=== PATIENT | female | born 1945 | race Caucasian/White ===

== ENCOUNTER 2017-03-01 18:56 | Emergency (ER) | payer OTHER ==
[~2017-03-01] VITALS: Ht 144.8 cm; Wt 85.0 kg
[~2017-03-01 18:56] MED LIST: ACET325T26 PO; ALEN70TA3 PO; CARB1TAB2 PO; CHOL10002 PO; DIGO125T PO; ENOX100S5 SQ; ENOX30SY4 SQ; ERGO500047 PO; FLUT1DIS3 INH; FURO40TA6 PO; HYDR-3240 PO; HYDR-3307 PO; HYDR25SU4 HOMEMEDPR; IRON PO; LEVA15HF2 INH; LEVO500T8 PO; LISI2.5T PO; LISI5TAB7 PO; LOVENOX SC; MAGNESIUM PO; MECL-76 PO; METO2.5T PO; MONT10TA6 PO; POTA10TA11 PO; POTASSIUM PO; PREG150C PO; PREG50CA PO; PREG75CA PO; SUCR1TAB26 PO; TORS10TA4 PO; TORS20TA PO; TORS20TA2 PO; TRAM50TA2 PO; VERA240T86 PO; VITA1CAP PO; VITA400C40 PO; WARF2.5T PO; WARF5TAB PO; WARF7.5T PO-COUM
[2017-03-01 18:59] VITALS: BP 130/77
[2017-03-01 19:41] LABS: BLOOD UREA NITROGEN 19 mg/dL (7-18)
[2017-03-01] MEDS ORDERED: [UNRECOGNIZED DRUG - CODE] TP (19:57)
[2017-03-01] MEDS ORDERED: ALEN10TA6 PO (19:57)
== END 2017-03-01 20:54 | disposition home or self-care (01) ==
LOC: ED 20:48
DX: S40.022A Contusion of left upper arm, initial encounter (principal); D68.9 Coagulation defect, unspecified; I48.91 Unspecified atrial fibrillation; Z79.01 Long term (current) use of anticoagulants; J44.9 Chronic obstructive pulmonary disease, unspecified; K21.9 Gastro-esophageal reflux disease without esophagitis; I11.0 Hypertensive heart disease with heart failure; I50.9 Heart failure, unspecified; Z90.710 Acquired absence of both cervix and uterus; Z90.49 Acquired absence of other specified parts of digestive tract; X58.XXXA Exposure to other specified factors, initial encounter; Y93.89 Activity, other specified; Y92.89 Other specified places as the place of occurrence of the external cause; Y99.9 Unspecified external cause status
CPT/HCPCS: 36415; 80048; 82040; 85025; 85610; 99285

== ENCOUNTER 2017-03-16 09:41 | Inpatient (IN) | payer OTHER ==
[~2017-03-16] VITALS: Ht 144.8 cm; Wt 83.1 kg
[~2017-03-16 09:41] MED LIST changes: +ALEN10TA6 PO; +[UNRECOGNIZED DRUG - CODE] TP
[2017-03-16] MEDS ORDERED: SODIUM CHLORIDE FLUSH 10ML SYR IVF ONE (10:30)
[2017-03-16 11:02] LABS: ASPARTATE AMINO TRANSFERASE 58 U/L (15-37); BLOOD UREA NITROGEN 33 mg/dL (7-18)
[2017-03-16 11:24] LABS: ANISOCYTOSIS 1+
[2017-03-16 11:25] LABS: HYPOCHROMIA 1+; TARGET CELLS 1+
[2017-03-16] MEDS ORDERED: TORS20TA2 PO (11:27)
[2017-03-16] MEDS ORDERED: VERA360C2 PO (11:27)
[2017-03-16] MEDS ORDERED: PREG50CA PO ×2 (11:27)
[2017-03-16] MEDS ORDERED: HYDR-3307 PO (11:27)
[2017-03-16] MEDS ORDERED: SUCR1TAB26 PO (11:27)
[2017-03-16] MEDS ORDERED: PHYTONADIONE 10 MG/ML, 1ML SQ ONE (13:00)
[2017-03-16] MEDS ORDERED: PHYTONADIONE 10 MG/ML, 1ML ONE (13:14)
[2017-03-16] MEDS ORDERED: ONDANSETRON 2MG/ML, 2ML IVPush PRN (14:30)
[2017-03-16] MEDS ORDERED: BISACODYL 10 MG SUPP PR PRN (14:30)
[2017-03-16] MEDS ORDERED: TEMPLATE NON-FORMULARY MED. (Fluticasone/Salmeterol** (Advair 250-50 Diskus**) 1 PUFF) INH SCH (17:00)
[2017-03-16] MEDS: morphine SULFATE 10 MG/ML, 1ML IVPush PRN (19:37)
[2017-03-16 20:01] VITALS: BP 116/65
[2017-03-16] MEDS: POTASSIUM CHLORIDE 20 MEQ in LACTATED RINGERS 1,000 ML IV SCH (20:02)
[2017-03-16] MEDS ORDERED: OMNIPAQUE 350 MG/ML, 100ML BOTTLE ONE (20:08)
[2017-03-16] MEDS: CARBIDOPA/LEVODOPA 25 MG/100 MG TABLET PO SCH (20:56)
[2017-03-16] MEDS: PREGABALIN 25 MG CAPSULE PO SCH (20:56)
[2017-03-16] MEDS: MONTELUKAST 10 MG TABLET PO SCH (20:56)
[2017-03-17 03:32] VITALS: BP 119/73
[2017-03-17 05:36] LABS: ASPARTATE AMINO TRANSFERASE 61 U/L (15-37); BLOOD UREA NITROGEN 17 mg/dL (7-18)
[2017-03-17] MEDS: PREGABALIN 25 MG CAPSULE PO SCH ×2 (06:14→20:46)
[2017-03-17] MEDS: morphine SULFATE 10 MG/ML, 1ML IVPush PRN ×4 (06:18→20:46)
[2017-03-17 07:21] LABS: DIFF TOTAL CELLS COUNTED 100 CELL DIFF
[2017-03-17 07:25] LABS: VERIFY COUNTS? YES
[2017-03-17 07:27] LABS: ANISOCYTOSIS 1+
[2017-03-17 07:28] LABS: TARGET CELLS 1+
[2017-03-17 08:01] VITALS: BP 110/68
[2017-03-17] MEDS: VERAPAMIL ER 180MG TABLET.ER PO SCH (10:18)
[2017-03-17] MEDS: CARBIDOPA/LEVODOPA 25 MG/100 MG TABLET PO SCH ×2 (10:18→20:46)
[2017-03-17] MEDS: PHYTONADIONE 10 MG/ML, 1ML SQ SCH (10:19)
[2017-03-17] MEDS: FLUTICASONE/VILANTEROL 200-25MCG/INH INH SCH (11:59)
[2017-03-17] MEDS: POTASSIUM CHLORIDE 20 MEQ in LACTATED RINGERS 1,000 ML IV SCH (13:16)
[2017-03-17 15:00] VITALS: BP 116/70
[2017-03-17 19:05] VITALS: BP 119/72
[2017-03-17] MEDS: MONTELUKAST 10 MG TABLET PO SCH (20:46)
[2017-03-18] MEDS: morphine SULFATE 10 MG/ML, 1ML IVPush PRN ×5 (00:26→21:26)
[2017-03-18 03:14] VITALS: BP 120/82
[2017-03-18] MEDS: PREGABALIN 25 MG CAPSULE PO SCH ×2 (05:54→21:19)
[2017-03-18 06:17] LABS: ASPARTATE AMINO TRANSFERASE 51 U/L (15-37); BLOOD UREA NITROGEN 17 mg/dL (7-18)
[2017-03-18 07:48] VITALS: BP 120/74
[2017-03-18] MEDS ORDERED: POLYETHYLENE GLYCOL 17 GM PACKET NG ONE (09:00)
[2017-03-18] MEDS: VERAPAMIL ER 180MG TABLET.ER PO SCH (09:25)
[2017-03-18] MEDS: CARBIDOPA/LEVODOPA 25 MG/100 MG TABLET PO SCH ×2 (09:25→21:19)
[2017-03-18] MEDS: FLUTICASONE/VILANTEROL 200-25MCG/INH INH SCH (09:26)
[2017-03-18] MEDS: DOCUSATE 100 MG CAPSULE PO SCH ×2 (10:22→21:19)
[2017-03-18] MEDS: PHYTONADIONE 10 MG/ML, 1ML SQ SCH (10:24)
[2017-03-18] MEDS: ENOXAPARIN 80 MG/0.8 ML SQ SCH ×2 (10:30→22:30)
[2017-03-18 12:43] VITALS: BP 120/71
[2017-03-18 19:29] VITALS: BP 125/70
[2017-03-18] MEDS: MONTELUKAST 10 MG TABLET PO SCH (21:19)
[2017-03-19 02:30] VITALS: BP 122/75
[2017-03-19 03:55] LABS: BLOOD UREA NITROGEN 12 mg/dL (7-18)
[2017-03-19 03:58] LABS: ASPARTATE AMINO TRANSFERASE 58 U/L (15-37)
[2017-03-19 03:59] LABS: IS PT STATUS REG ER OR PRE ER? NO
[2017-03-19 04:07] LABS: DIFF TOTAL CELLS COUNTED 100 CELL DIFF
[2017-03-19 04:24] LABS: ANISOCYTOSIS 1+; HYPOCHROMIA 1+; POLYCHROMASIA 1+; TARGET CELLS 1+; VERIFY COUNTS? YES
[2017-03-19] MEDS: morphine SULFATE 10 MG/ML, 1ML IVPush PRN ×2 (06:32→21:49)
[2017-03-19 08:30] VITALS: BP 116/68
[2017-03-19] MEDS ORDERED: FENTANYL PF 100 MCG/2ML ONE (08:43)
[2017-03-19] MEDS ORDERED: SUCCINYLCHOLINE 20 MG/ML, 10ML ONE (09:09)
[2017-03-19] MEDS ORDERED: ONDANSETRON 2MG/ML, 2ML ONE (09:09)
[2017-03-19] MEDS ORDERED: PROPOFOL 10 MG/ML, 20ML ONE (09:09)
[2017-03-19] MEDS ORDERED: PROMETHAZINE 25 MG/ML, 1ML IV PRN (10:00)
[2017-03-19] MEDS ORDERED: ONDANSETRON 2MG/ML, 2ML IVPush PRN (10:00)
[2017-03-19] MEDS ORDERED: MIDAZOLAM 1 MG/ML, 2ML IV PRN (10:00)
[2017-03-19] MEDS ORDERED: FENTANYL PF 100 MCG/2ML IV PRN (10:00)
[2017-03-19] MEDS ORDERED: hydrALAzine 20 MG/ML, 1ML IV PRN (10:00)
[2017-03-19] MEDS ORDERED: LABETALOL 5MG/ML, 20ML IV PRN (10:00)
[2017-03-19] MEDS ORDERED: HYDROmorphone 1 MG/ML, 1ML IV PRN (10:00)
[2017-03-19] MEDS ORDERED: ALBUTEROL/IPRATROPIUM 2.5MG/0.5MG, 3 ML NPPB PRN (10:00)
[2017-03-19] MEDS ORDERED: OMNIPAQUE 350 MG/ML, 50 ML BOTTLE ONE (10:40)
[2017-03-19] MEDS ORDERED: INDOMETHACIN 50 MG SUPP.RECT ONE (10:46)
[2017-03-19] MEDS ORDERED: INDOMETHACIN 50 MG SUPP.RECT PR ONE (11:00)
[2017-03-19] MEDS: ENOXAPARIN 80 MG/0.8 ML SQ SCH ×2 (11:20→21:44)
[2017-03-19] MEDS: PHYTONADIONE 10 MG/ML, 1ML SQ SCH (11:20)
[2017-03-19] MEDS: PREGABALIN 25 MG CAPSULE PO SCH ×2 (12:47→21:44)
[2017-03-19] MEDS: VERAPAMIL ER 180MG TABLET.ER PO SCH (12:48)
[2017-03-19] MEDS: CARBIDOPA/LEVODOPA 25 MG/100 MG TABLET PO SCH ×2 (12:48→21:44)
[2017-03-19] MEDS: DOCUSATE 100 MG CAPSULE PO SCH ×2 (12:49→21:44)
[2017-03-19] MEDS: FLUTICASONE/VILANTEROL 200-25MCG/INH INH SCH (12:49)
[2017-03-19 14:35] VITALS: BP 119/56
[2017-03-19 19:43] VITALS: BP 101/58
[2017-03-19] MEDS: MONTELUKAST 10 MG TABLET PO SCH (21:56)
[2017-03-20 02:17] VITALS: BP 99/60
[2017-03-20 05:52] LABS: ASPARTATE AMINO TRANSFERASE 46 U/L (15-37); BLOOD UREA NITROGEN 24 mg/dL (7-18)
[2017-03-20 06:36] LABS: DIFF TOTAL CELLS COUNTED 100 CELL DIFF
[2017-03-20 06:37] LABS: VERIFY COUNTS? YES
[2017-03-20 06:38] LABS: ANISOCYTOSIS 1+
[2017-03-20 06:39] LABS: HYPOCHROMIA 1+; POLYCHROMASIA 1+
[2017-03-20 06:40] LABS: TARGET CELLS 1+
[2017-03-20 06:54] VITALS: BP 101/50
[2017-03-20] MEDS ORDERED: POTASSIUM CHLORIDE 20 MEQ TAB.ER.PRT PO ONE (07:30)
[2017-03-20] MEDS: CARBIDOPA/LEVODOPA 25 MG/100 MG TABLET PO SCH (08:23)
[2017-03-20] MEDS: VERAPAMIL ER 180MG TABLET.ER PO SCH (08:23)
[2017-03-20] MEDS: PREGABALIN 25 MG CAPSULE PO SCH (08:23)
[2017-03-20] MEDS: FLUTICASONE/VILANTEROL 200-25MCG/INH INH SCH (08:23)
[2017-03-20] MEDS: DOCUSATE 100 MG CAPSULE PO SCH (08:23)
[2017-03-20] MEDS: morphine SULFATE 10 MG/ML, 1ML IVPush PRN ×2 (08:33→14:38)
[2017-03-20] MEDS ORDERED: CIPR250T27 PO (10:11)
[2017-03-20] MEDS ORDERED: METR750T PO (10:11)
[2017-03-20] MEDS ORDERED: ENOX80SY5 SQ (10:50)
[2017-03-20 13:09] VITALS: BP 96/60
[2017-03-20] MEDS ORDERED: ENOXAPARIN 80 MG/0.8 ML SQ SCH (21:00)
== END 2017-03-20 15:45 | disposition home health service (06) | DRG 438 ==
LOC: ED 11:17 → SUATTDRO 13:19 → EDIP 14:18 → 3NE 17:13
PROC: 0FBG3ZX Excision of Pancreas, Percutaneous Approach, Diagnostic (ICD-10-PCS; 2017-03-19)
PROC: 0F798DZ Dilation of Common Bile Duct with Intraluminal Device, Via Natural or Artificial Opening Endoscopic (ICD-10-PCS; principal; 2017-03-19 09:00)
PROC: 0DJ08ZZ Inspection of Upper Intestinal Tract, Via Natural or Artificial Opening Endoscopic (ICD-10-PCS; 2017-03-19 09:00)
DX: K85.90 Acute pancreatitis without necrosis or infection, unspecified (principal); K83.1 Obstruction of bile duct; I50.33 Acute on chronic diastolic (congestive) heart failure; E87.1 Hypo-osmolality and hyponatremia; D68.59 Other primary thrombophilia; I11.0 Hypertensive heart disease with heart failure; I48.2 Chronic atrial fibrillation; K21.9 Gastro-esophageal reflux disease without esophagitis; G25.81 Restless legs syndrome; Z66 Do not resuscitate; Z86.010 Personal history of colon polyps; M19.90 Unspecified osteoarthritis, unspecified site; K57.90 Diverticulosis of intestine, part unspecified, without perforation or abscess without bleeding; Z95.3 Presence of xenogenic heart valve; Z85.038 Personal history of other malignant neoplasm of large intestine; Z79.01 Long term (current) use of anticoagulants; I27.2 Other secondary pulmonary hypertension; Z90.49 Acquired absence of other specified parts of digestive tract; Z90.710 Acquired absence of both cervix and uterus; Z90.721 Acquired absence of ovaries, unilateral; Z88.1 Allergy status to other antibiotic agents; Z88.0 Allergy status to penicillin; Z95.2 Presence of prosthetic heart valve; G47.33 Obstructive sleep apnea (adult) (pediatric); G20 Parkinson's disease; T45.515A Adverse effect of anticoagulants, initial encounter; J44.9 Chronic obstructive pulmonary disease, unspecified; M81.0 Age-related osteoporosis without current pathological fracture
CPT/HCPCS: 36415; 74170; 74181; 74328; 76700; 80048; 80053; 80076; 80307; 81001; 82140; 82247; 82248; 82378; 83690; 83735; 84484; 85025; 85610; 85730; 86301; 87086; 88173; 88307; 93005; 96374; 96375; J1650; J2405; J2704; J3010; J3430; J3480; Q9967; C1769; C1894; C2625; J0330; J2270; J7120

== ENCOUNTER 2017-04-11 09:41 | Day surgery (SDC) | payer OTHER ==
[~2017-04-11] VITALS: Ht 144.8 cm; Wt 80.9 kg
[~2017-04-11 09:41] MED LIST changes: +BUDE10.22 INH; +CIPR250T27 PO; +ENOX80SY5 SQ; -LEVA15HF2 INH; +LEVA15HF4 INH; +METR750T PO; +POTA10TA PO; -SUCR1TAB26 PO; +SUCR1TAB33 PO; +VERA360C2 PO; -VITA400C40 PO; +VITA400C43 PO
[2017-04-11 10:12] VITALS: BP 130/87
[2017-04-11] MEDS ORDERED: LACTATED RINGERS 1,000 ML IV SCH (10:15)
[2017-04-11] MEDS ORDERED: OXYC-293 PO (10:32)
[2017-04-11] MEDS ORDERED: FENTANYL PF 100 MCG/2ML ONE ×2 (10:51→11:02)
[2017-04-11] MEDS ORDERED: MIDAZOLAM 1 MG/ML, 2ML ONE ×2 (10:51→11:02)
[2017-04-11] MEDS ORDERED: hydrALAzine 20 MG/ML, 1ML IV PRN (12:00)
[2017-04-11] MEDS ORDERED: ACETAMINOPHEN 325 MG TABLET PO PRN (12:00)
[2017-04-11] MEDS ORDERED: HYDROmorphone 1 MG/ML, 1ML IV PRN (12:00)
[2017-04-11] MEDS ORDERED: ONDANSETRON 2MG/ML, 2ML IVPush PRN (12:00)
[2017-04-11] MEDS ORDERED: PROMETHAZINE 25 MG/ML, 1ML IV PRN (12:00)
[2017-04-11] MEDS ORDERED: LABETALOL 5MG/ML, 20ML IV PRN (12:00)
[2017-04-11] MEDS ORDERED: OXYcodone 5 MG/5 ML ORAL.SOL UDC PO PRN (12:00)
[2017-04-11] MEDS ORDERED: MEPERIDINE/PF 25MG/0.5ML IVPush PRN (12:00)
[2017-04-11] MEDS ORDERED: FENTANYL PF 100 MCG/2ML IV PRN (12:00)
[2017-04-11] MEDS ORDERED: HYDROmorphone 1 MG/ML, 1ML ONE (12:40)
[2017-04-11] MEDS ORDERED: SUCCINYLCHOLINE 20 MG/ML, 10ML ONE (15:47)
[2017-04-11] MEDS ORDERED: PROPOFOL 10 MG/ML, 20ML ONE (15:47)
[2017-04-11] MEDS ORDERED: ONDANSETRON 2MG/ML, 2ML ONE (15:47)
[2017-04-11] MEDS ORDERED: DEXAMETHASONE 4 MG/ML, 1ML ONE (15:47)
[2017-04-11] MEDS ORDERED: KETAMINE 10 MG/ML, 20ML ONE (15:47)
== END 2017-04-11 15:00 ==
LOC: OUT 09:41
PROVIDERS: ATTEND Internal Medicine Geriatric Medicine
DX: C25.0 Malignant neoplasm of head of pancreas (principal); K83.1 Obstruction of bile duct; I10 Essential (primary) hypertension; J45.909 Unspecified asthma, uncomplicated; E11.9 Type 2 diabetes mellitus without complications; G20 Parkinson's disease; Z88.0 Allergy status to penicillin; Z87.39 Personal history of other diseases of the musculoskeletal system and connective tissue
CPT/HCPCS: 36415; 43242; 43276; 74328; 82962; 85610; 85730; 88172; 88173; 88177; 88307; C1769; C1894; C2625; J0330; J1100; J1170; J2250; J2405; J2704; J3010; J7120; Q9967

== ENCOUNTER → 2017-05-15 | Outpatient (CLI) | payer OTHER ==
[~2017-05-15] MED LIST changes: +LEVA15HF2 INH; -LEVA15HF4 INH; +OMNIPAQUE 350 MG/ML, 100ML BOTTLE ONE; +OXYC-96 PO; +SUCR1TAB26 PO; -SUCR1TAB33 PO
== END | disposition home or self-care (01) ==
LOC: CFH 14:21
PROVIDERS: ATTEND Surgery
DX: C25.9 Malignant neoplasm of pancreas, unspecified (principal); N28.1 Cyst of kidney, acquired; K80.80 Other cholelithiasis without obstruction
CPT/HCPCS: 74170; Q9967

== ENCOUNTER 2017-06-14 19:56 | Inpatient (IN) | payer OTHER ==
[~2017-06-14] VITALS: Ht 144.8 cm; Wt 64.3 kg
[~2017-06-14 19:56] MED LIST changes: -LEVA15HF2 INH; +LEVA15HF4 INH; -OMNIPAQUE 350 MG/ML, 100ML BOTTLE ONE; +OXYC-293 PO; -OXYC-96 PO; -SUCR1TAB26 PO; +SUCR1TAB33 PO
[2017-06-14] MEDS ORDERED: SODIUM CHLORIDE FLUSH 10ML SYR IVF ONE (20:30)
[2017-06-14] MEDS ORDERED: ACETAMINOPHEN 325 MG TABLET PO ONE (20:30)
[2017-06-14] MEDS ORDERED: SODIUM CHLORIDE 0.9% 1,000ML IVBOLUS ONE (20:30)
[2017-06-14] MEDS ORDERED: ONDANSETRON 2MG/ML, 2ML ONE (20:41)
[2017-06-14] MEDS ORDERED: MORPHINE SULFATE 4 MG/ML, 1ML ONE ×2 (20:41→21:43)
[2017-06-14] MEDS ORDERED: ACETAMINOPHEN 325 MG TABLET ONE (20:41)
[2017-06-14] MEDS ORDERED: ONDANSETRON 2MG/ML, 2ML IVPush ONE (21:00)
[2017-06-14] MEDS ORDERED: MORPHINE SULFATE 4 MG/ML, 1ML IVPush PRN (21:00)
[2017-06-14 21:08] LABS: HEMATOCRIT 33.6 % (34.6-47.8); WHITE BLOOD COUNT 7.8 x10^3/uL (3.4-10)
[2017-06-14 21:12] LABS: BLOOD UREA NITROGEN 20 mg/dL (7-18)
[2017-06-14 21:13] LABS: PATH.CAST-FLAG NOT PRESENT; SPERM-FLAG NOT PRESENT; SRC-FLAG NOT PRESENT; XTAL-FLAG NOT PRESENT; YLC-FLAG NOT PRESENT
[2017-06-14 21:17] LABS: ASPARTATE AMINO TRANSFERASE 103 U/L (15-37)
[2017-06-14] MEDS ORDERED: CEFTRIAXONE PMX 1GM/50ML 50 ML ONE (22:12)
[2017-06-14] MEDS ORDERED: NYSTATIN TOPICAL POWDER 15GM TP ONE (22:30)
[2017-06-14] MEDS ORDERED: VANCOMYCIN PER PHARMACY MC PRN ×2 (22:30→23:30)
[2017-06-14] MEDS ORDERED: CEFTRIAXONE PMX 1GM/50ML 50 ML IV ONE (22:30)
[2017-06-14] MEDS ORDERED: VANCOMYCIN 1,400 MG in SODIUM CHLORIDE 0.9% 250 ML IV ONE (23:00)
[2017-06-14] MEDS ORDERED: ONDANSETRON 2MG/ML, 2ML IVPush PRN (23:30)
[2017-06-14] MEDS ORDERED: ACETAMINOPHEN 500 MG TABLET PO PRN (23:30)
[2017-06-14] MEDS ORDERED: Enoxaparin 1 mg/kg protocol SQ SCH (23:30)
[2017-06-14] MEDS ORDERED: WARFARIN MODERAT DOSE PROTOCOL XX PRN (23:30)
[2017-06-14] MEDS ORDERED: POTASSIUM CHLORIDE 20 MEQ TAB.ER.PRT PO ONE (23:30)
[2017-06-14 23:41] VITALS: BP 99/54
[2017-06-14] MEDS ORDERED: PHARMACOKINETIC MONITORING MC PRN (23:45)
[2017-06-15] MEDS: OXYcodone IR 5MG TABLET PO PRN ×4 (00:36→15:49)
[2017-06-15] MEDS: LACTATED RINGERS 1,000 ML IV SCH ×2 (00:55→17:55)
[2017-06-15 03:33] VITALS: BP 95/58
[2017-06-15 05:31] LABS: HEMATOCRIT 26.1 % (34.6-47.8); HEMOGLOBIN 8.9 g/dL (11.7-16.4); WHITE BLOOD COUNT 5.5 x10^3/uL (3.4-10)
[2017-06-15 05:54] LABS: ASPARTATE AMINO TRANSFERASE 75 U/L (15-37); BLOOD UREA NITROGEN 17 mg/dL (7-18)
[2017-06-15] MEDS ORDERED: SODIUM PHOSPHATE 20 MMOL in SODIUM CHLORIDE 0.9% 500 ML IV ONE (07:00)
[2017-06-15 07:35] VITALS: BP 104/65
[2017-06-15] MEDS ORDERED: SODIUM CHLORIDE 0.9%, 500ML IVBOLUS ONE (08:00)
[2017-06-15] MEDS: PREGABALIN 25 MG CAPSULE PO SCH ×2 (08:51→20:06)
[2017-06-15] MEDS: ALENDRONATE 10 MG TABLET PO SCH (08:51)
[2017-06-15] MEDS: CHOLECALCIFEROL 1,000 UNIT TABLET PO SCH (08:53)
[2017-06-15] MEDS: TORSEMIDE 20 MG TABLET PO SCH (08:53)
[2017-06-15] MEDS: LACTULOSE 10 GM/15 ML UDC PO SCH ×2 (08:53→20:07)
[2017-06-15] MEDS: SUCRALFATE 1 GM TABLET PO SCH ×2 (08:54→20:06)
[2017-06-15] MEDS: CARBIDOPA/LEVODOPA 25 MG/100 MG TABLET PO SCH ×2 (08:55→20:06)
[2017-06-15] MEDS: NYSTATIN TOPICAL POWDER 15GM TP SCH ×3 (08:56→20:07)
[2017-06-15] MEDS ORDERED: VERAPAMIL ER 180MG TABLET.ER PO SCH (09:00)
[2017-06-15] MEDS: FLUTICASONE/VILANTEROL 100-25MCG/INH INH SCH (09:00)
[2017-06-15] MEDS ORDERED: WARFARIN 5 MG TABLET PO-COUM SCH (09:00)
[2017-06-15 12:26] LABS: OCCBLD OBC PASS
[2017-06-15 13:53] VITALS: BP 100/57
[2017-06-15] MEDS ORDERED: WARFARIN 7.5 MG TABLET PO-COUM ONE (18:00)
[2017-06-15 19:18] VITALS: BP_SYST 108; BP_SYST 87; BP_DIAS 48; BP_DIAS 67
[2017-06-15] MEDS: CEFTRIAXONE PMX 1GM/50ML 50 ML IV SCH (20:59)
[2017-06-16 00:50] VITALS: BP 92/51
[2017-06-16 04:49] LABS: HEMATOCRIT 26.8 % (34.6-47.8); HEMOGLOBIN 8.9 g/dL (11.7-16.4); WHITE BLOOD COUNT 5.5 x10^3/uL (3.4-10)
[2017-06-16] MEDS: LACTATED RINGERS 1,000 ML IV SCH ×2 (04:49→22:16)
[2017-06-16] MEDS: OXYcodone IR 5MG TABLET PO PRN ×5 (04:49→22:01)
[2017-06-16 05:01] LABS: BLOOD UREA NITROGEN 9 mg/dL (7-18)
[2017-06-16 05:06] LABS: ASPARTATE AMINO TRANSFERASE 74 U/L (15-37)
[2017-06-16 06:42] VITALS: BP 97/61
[2017-06-16] MEDS ORDERED: POTASSIUM CHLORIDE 20 MEQ TAB.ER.PRT PO ONE (07:30)
[2017-06-16] MEDS ORDERED: SODIUM CHLORIDE 0.9%, 500ML IVBOLUS ONE (07:30)
[2017-06-16] MEDS ORDERED: POTASSIUM PHOSPHATE 44 MEQ in SODIUM CHLORIDE 0.9% 500 ML IV ONE (08:30)
[2017-06-16] MEDS: CHOLECALCIFEROL 1,000 UNIT TABLET PO SCH (08:31)
[2017-06-16] MEDS: CARBIDOPA/LEVODOPA 25 MG/100 MG TABLET PO SCH ×2 (08:32→22:01)
[2017-06-16] MEDS: PREGABALIN 25 MG CAPSULE PO SCH ×2 (08:32→22:02)
[2017-06-16] MEDS: LACTULOSE 10 GM/15 ML UDC PO SCH ×2 (08:32→22:01)
[2017-06-16] MEDS: TORSEMIDE 20 MG TABLET PO SCH (08:33)
[2017-06-16] MEDS: SUCRALFATE 1 GM TABLET PO SCH ×2 (08:34→21:00)
[2017-06-16] MEDS: ALENDRONATE 10 MG TABLET PO SCH (08:34)
[2017-06-16] MEDS: FLUTICASONE/VILANTEROL 100-25MCG/INH INH SCH (08:36)
[2017-06-16] MEDS: VERAPAMIL ER 180MG TABLET.ER PO SCH (08:37)
[2017-06-16] MEDS: PANTOPRAZOLE 20MG TABLET PO SCH ×2 (08:53→22:01)
[2017-06-16] MEDS: PANTOPRAZOLE 40 MG IV IVPush SCH (09:00)
[2017-06-16] MEDS: NYSTATIN TOPICAL POWDER 15GM TP SCH ×2 (09:04→21:00)
[2017-06-16] MEDS: VANCOMYCIN 1,400 MG in SODIUM CHLORIDE 0.9% 250 ML IV SCH (10:00)
[2017-06-16 12:40] VITALS: BP 124/77
[2017-06-16] MEDS ORDERED: GOLYTELY 4,000ML ORAL.SOL PO ONE (18:00)
[2017-06-16] MEDS ORDERED: WARFARIN 10 MG TABLET PO-COUM SCH (18:00)
[2017-06-16 19:02] VITALS: BP 109/69
[2017-06-16] MEDS: CEFTRIAXONE PMX 1GM/50ML 50 ML IV SCH (22:01)
[2017-06-17 00:28] VITALS: BP 110/66
[2017-06-17] MEDS: HYDROmorphone 2 MG/ML, 1ML IVPush PRN ×3 (03:12→21:25)
[2017-06-17 04:40] LABS: BLOOD UREA NITROGEN 8 mg/dL (7-18)
[2017-06-17 04:44] LABS: HEMATOCRIT 28.2 % (34.6-47.8); HEMOGLOBIN 9.5 g/dL (11.7-16.4); WHITE BLOOD COUNT 4.1 x10^3/uL (3.4-10)
[2017-06-17 04:44] LABS: ASPARTATE AMINO TRANSFERASE 65 U/L (15-37)
[2017-06-17 07:01] VITALS: BP 99/60
[2017-06-17] MEDS: PANTOPRAZOLE 40 MG IV IVPush SCH (08:00)
[2017-06-17] MEDS: LACTULOSE 10 GM/15 ML UDC PO SCH ×2 (08:00→21:25)
[2017-06-17] MEDS: VERAPAMIL ER 180MG TABLET.ER PO SCH (09:00)
[2017-06-17] MEDS: ALENDRONATE 10 MG TABLET PO SCH (09:00)
[2017-06-17] MEDS ORDERED: FENTANYL PF 100 MCG/2ML ONE (09:29)
[2017-06-17] MEDS ORDERED: MIDAZOLAM 1 MG/ML, 5ML ONE (09:29)
[2017-06-17] MEDS: VANCOMYCIN 1,400 MG in SODIUM CHLORIDE 0.9% 250 ML IV SCH (11:15)
[2017-06-17] MEDS: PREGABALIN 25 MG CAPSULE PO SCH ×2 (11:18→21:25)
[2017-06-17] MEDS: PANTOPRAZOLE 20MG TABLET PO SCH ×2 (11:19→21:26)
[2017-06-17] MEDS: CARBIDOPA/LEVODOPA 25 MG/100 MG TABLET PO SCH ×2 (11:19→21:28)
[2017-06-17] MEDS: SUCRALFATE 1 GM TABLET PO SCH ×2 (11:19→21:28)
[2017-06-17] MEDS: CHOLECALCIFEROL 1,000 UNIT TABLET PO SCH (11:20)
[2017-06-17] MEDS: FLUTICASONE/VILANTEROL 100-25MCG/INH INH SCH (11:20)
[2017-06-17] MEDS: NYSTATIN TOPICAL POWDER 15GM TP SCH ×2 (11:24→21:29)
[2017-06-17] MEDS: TORSEMIDE 20 MG TABLET PO SCH (11:24)
[2017-06-17] MEDS: LACTATED RINGERS 1,000 ML IV SCH (13:00)
[2017-06-17 13:18] VITALS: BP 111/59
[2017-06-17] MEDS ORDERED: POTASSIUM PHOS 4.4 MEQ/ML IV SCH (16:30)
[2017-06-17] MEDS ORDERED: POTASSIUM PHOSPHATE 44 MEQ in SODIUM CHLORIDE 0.9% 500 ML IV ONE (17:00)
[2017-06-17] MEDS: NEUTRA PHOS K 250 MG TABLET PO SCH ×2 (17:54→21:26)
[2017-06-17] MEDS ORDERED: WARFARIN 7.5 MG TABLET PO-COUM ONE (18:30)
[2017-06-17 18:46] VITALS: BP 94/56
[2017-06-17] MEDS: OXYcodone IR 5MG TABLET PO PRN (19:16)
[2017-06-17] MEDS ORDERED: VANCOMYCIN PER PHARMACY MC PRN (19:30)
[2017-06-17] MEDS ORDERED: ACETAMINOPHEN 500 MG TABLET PO PRN (19:30)
[2017-06-17] MEDS ORDERED: ONDANSETRON 2MG/ML, 2ML IVPush PRN (19:30)
[2017-06-17] MEDS: CEFTRIAXONE PMX 1GM/50ML 50 ML IV SCH (21:29)
[2017-06-18 04:23] VITALS: BP 114/73
[2017-06-18] MEDS: OXYcodone IR 5MG TABLET PO PRN ×4 (04:33→22:48)
[2017-06-18 06:59] VITALS: BP 108/61
[2017-06-18] MEDS: ALENDRONATE 10 MG TABLET PO SCH (09:00)
[2017-06-18] MEDS: VERAPAMIL ER 180MG TABLET.ER PO SCH (09:00)
[2017-06-18] MEDS: VANCOMYCIN 1,400 MG in SODIUM CHLORIDE 0.9% 250 ML IV SCH (10:07)
[2017-06-18] MEDS: FLUTICASONE/VILANTEROL 100-25MCG/INH INH SCH (10:08)
[2017-06-18] MEDS: PANTOPRAZOLE 40 MG IV IVPush SCH (10:09)
[2017-06-18] MEDS: TORSEMIDE 20 MG TABLET PO SCH (10:09)
[2017-06-18] MEDS: SUCRALFATE 1 GM TABLET PO SCH ×2 (10:10→21:00)
[2017-06-18] MEDS: LACTULOSE 10 GM/15 ML UDC PO SCH ×2 (10:11→21:28)
[2017-06-18] MEDS: CHOLECALCIFEROL 1,000 UNIT TABLET PO SCH (10:11)
[2017-06-18] MEDS: PANTOPRAZOLE 20MG TABLET PO SCH ×2 (10:11→21:29)
[2017-06-18] MEDS: NYSTATIN TOPICAL POWDER 15GM TP SCH ×2 (10:12→21:28)
[2017-06-18] MEDS: CARBIDOPA/LEVODOPA 25 MG/100 MG TABLET PO SCH ×2 (10:12→21:28)
[2017-06-18] MEDS: PREGABALIN 25 MG CAPSULE PO SCH ×2 (10:14→21:28)
[2017-06-18] MEDS: NEUTRA PHOS K 250 MG TABLET PO SCH ×3 (10:15→21:29)
[2017-06-18 13:23] VITALS: BP 91/52
[2017-06-18] MEDS ORDERED: WARFARIN 10 MG TABLET PO-COUM SCH (18:00)
[2017-06-18] MEDS: LACTATED RINGERS 1,000 ML IV SCH ×2 (18:14→21:39)
[2017-06-18 19:17] VITALS: BP 104/61
[2017-06-18] MEDS: CEFTRIAXONE PMX 1GM/50ML 50 ML IV SCH (21:28)
[2017-06-19] MEDS: HYDROmorphone 2 MG/ML, 1ML IVPush PRN (01:59)
[2017-06-19 02:48] VITALS: BP 110/69
[2017-06-19 04:43] LABS: HEMATOCRIT 26.4 % (34.6-47.8); HEMOGLOBIN 9.1 g/dL (11.7-16.4); WHITE BLOOD COUNT 3.2 x10^3/uL (3.4-10)
[2017-06-19 04:53] LABS: ASPARTATE AMINO TRANSFERASE 21 U/L (15-37); BLOOD UREA NITROGEN 5 mg/dL (7-18)
[2017-06-19 06:25] VITALS: BP 111/69
[2017-06-19] MEDS: OXYcodone IR 5MG TABLET PO PRN ×3 (06:32→20:18)
[2017-06-19] MEDS: FLUTICASONE/VILANTEROL 100-25MCG/INH INH SCH (08:35)
[2017-06-19] MEDS: TORSEMIDE 20 MG TABLET PO SCH (08:40)
[2017-06-19] MEDS: LACTULOSE 10 GM/15 ML UDC PO SCH ×2 (08:41→20:18)
[2017-06-19] MEDS: CARBIDOPA/LEVODOPA 25 MG/100 MG TABLET PO SCH ×2 (08:41→20:16)
[2017-06-19] MEDS: ALENDRONATE 10 MG TABLET PO SCH (08:41)
[2017-06-19] MEDS: SUCRALFATE 1 GM TABLET PO SCH ×2 (08:41→20:17)
[2017-06-19] MEDS: NYSTATIN TOPICAL POWDER 15GM TP SCH ×2 (08:42→20:18)
[2017-06-19] MEDS: PANTOPRAZOLE 20MG TABLET PO SCH ×2 (08:42→20:17)
[2017-06-19] MEDS: CHOLECALCIFEROL 1,000 UNIT TABLET PO SCH (08:42)
[2017-06-19] MEDS: NEUTRA PHOS K 250 MG TABLET PO SCH ×3 (08:43→20:17)
[2017-06-19] MEDS: PREGABALIN 25 MG CAPSULE PO SCH ×2 (08:43→20:18)
[2017-06-19] MEDS: VANCOMYCIN 1,500 MG in SODIUM CHLORIDE 0.9% 250 ML IV SCH (10:29)
[2017-06-19] MEDS: LACTATED RINGERS 1,000 ML IV SCH (11:00)
[2017-06-19] MEDS: PANTOPRAZOLE 40 MG IV IVPush SCH (13:04)
[2017-06-19 13:27] VITALS: BP 101/67
[2017-06-19] MEDS ORDERED: MAGNESIUM SULFATE PMX 2GM/50ML 50 ML IV ONE (14:00)
[2017-06-19 14:53] VITALS: BP 94/58
[2017-06-19] MEDS: VERAPAMIL ER 180MG TABLET.ER PO SCH (14:53)
[2017-06-19] MEDS: POTASSIUM CHLORIDE 20 MEQ TAB.ER.PRT PO SCH (17:04)
[2017-06-19] MEDS ORDERED: WARFARIN 10 MG TABLET PO-COUM ONE (18:00)
[2017-06-19 19:41] VITALS: BP 113/70
[2017-06-19] MEDS: MAGNESIUM OXIDE 400 MG TABLET PO SCH (20:18)
[2017-06-19] MEDS: CEFTRIAXONE PMX 1GM/50ML 50 ML IV SCH (22:16)
[2017-06-20 00:51] VITALS: BP 109/64
[2017-06-20] MEDS: LACTATED RINGERS 1,000 ML IV SCH (02:44)
[2017-06-20 04:41] LABS: HEMATOCRIT 26.6 % (34.6-47.8); HEMOGLOBIN 9.1 g/dL (11.7-16.4); WHITE BLOOD COUNT 2.9 x10^3/uL (3.4-10)
[2017-06-20 04:51] LABS: BLOOD UREA NITROGEN 6 mg/dL (7-18)
[2017-06-20 04:55] LABS: ASPARTATE AMINO TRANSFERASE 24 U/L (15-37)
[2017-06-20] MEDS: OXYcodone IR 5MG TABLET PO PRN ×3 (07:03→21:16)
[2017-06-20 07:44] VITALS: BP 114/73
[2017-06-20] MEDS: POTASSIUM CHLORIDE 20 MEQ TAB.ER.PRT PO SCH ×2 (08:48→17:00)
[2017-06-20] MEDS: VERAPAMIL ER 180MG TABLET.ER PO SCH (08:51)
[2017-06-20] MEDS: LACTULOSE 10 GM/15 ML UDC PO SCH ×2 (08:52→21:17)
[2017-06-20] MEDS: MAGNESIUM OXIDE 400 MG TABLET PO SCH ×2 (08:53→21:17)
[2017-06-20] MEDS: PREGABALIN 25 MG CAPSULE PO SCH ×2 (08:53→21:17)
[2017-06-20] MEDS: NEUTRA PHOS K 250 MG TABLET PO SCH ×3 (08:54→21:20)
[2017-06-20] MEDS: PANTOPRAZOLE 20MG TABLET PO SCH ×2 (08:55→21:20)
[2017-06-20] MEDS: CHOLECALCIFEROL 1,000 UNIT TABLET PO SCH (08:56)
[2017-06-20] MEDS: SUCRALFATE 1 GM TABLET PO SCH ×2 (08:58→21:00)
[2017-06-20] MEDS: ALENDRONATE 10 MG TABLET PO SCH (08:59)
[2017-06-20] MEDS: PANTOPRAZOLE 40 MG IV IVPush SCH (09:00)
[2017-06-20] MEDS: TORSEMIDE 20 MG TABLET PO SCH (09:01)
[2017-06-20] MEDS: FLUTICASONE/VILANTEROL 100-25MCG/INH INH SCH (09:02)
[2017-06-20] MEDS: NYSTATIN TOPICAL POWDER 15GM TP SCH ×2 (09:04→21:18)
[2017-06-20] MEDS: CARBIDOPA/LEVODOPA 25 MG/100 MG TABLET PO SCH ×2 (09:04→21:19)
[2017-06-20] MEDS: VANCOMYCIN 1,500 MG in SODIUM CHLORIDE 0.9% 250 ML IV SCH (10:48)
[2017-06-20] MEDS ORDERED: WARFARIN 10 MG TABLET PO-COUM ONE (18:00)
[2017-06-20 18:36] VITALS: BP 102/62
[2017-06-20] MEDS: CEFTRIAXONE PMX 1GM/50ML 50 ML IV SCH (21:19)
[2017-06-21 02:59] VITALS: BP 137/75
[2017-06-21] MEDS: OXYcodone IR 5MG TABLET PO PRN ×2 (04:09→13:33)
[2017-06-21] MEDS: TORSEMIDE 20 MG TABLET PO SCH ×2 (07:30→07:50)
[2017-06-21 07:42] VITALS: BP 98/60
[2017-06-21] MEDS: VERAPAMIL ER 180MG TABLET.ER PO SCH (07:47)
[2017-06-21] MEDS: FLUTICASONE/VILANTEROL 100-25MCG/INH INH SCH (07:50)
[2017-06-21] MEDS: NYSTATIN TOPICAL POWDER 15GM TP SCH (07:51)
[2017-06-21] MEDS: ALENDRONATE 10 MG TABLET PO SCH (08:15)
[2017-06-21] MEDS: LACTULOSE 10 GM/15 ML UDC PO SCH (08:16)
[2017-06-21] MEDS: PREGABALIN 25 MG CAPSULE PO SCH (08:18)
[2017-06-21] MEDS: MAGNESIUM OXIDE 400 MG TABLET PO SCH (08:19)
[2017-06-21] MEDS: PANTOPRAZOLE 20MG TABLET PO SCH (08:20)
[2017-06-21] MEDS: NEUTRA PHOS K 250 MG TABLET PO SCH (08:20)
[2017-06-21] MEDS: CARBIDOPA/LEVODOPA 25 MG/100 MG TABLET PO SCH (08:21)
[2017-06-21] MEDS: CHOLECALCIFEROL 1,000 UNIT TABLET PO SCH (08:22)
[2017-06-21] MEDS: SUCRALFATE 1 GM TABLET PO SCH (08:25)
[2017-06-21] MEDS: PANTOPRAZOLE 40 MG IV IVPush SCH (09:00)
[2017-06-21] MEDS ORDERED: NYST60PO TP (10:20)
[2017-06-21] MEDS: VANCOMYCIN 1,500 MG in SODIUM CHLORIDE 0.9% 250 ML IV SCH (13:33)
[2017-06-21] MEDS ORDERED: WARFARIN 10 MG TABLET PO-COUM ONE (18:00)
== END 2017-06-21 16:55 | disposition home health service (06) | DRG 602 ==
LOC: ED 21:42 → EDIP 22:45 → 3NW 23:22
PROVIDERS: ADMIT Hospitalist; ATTEND Hospitalist
PROC: 0DJ08ZZ Inspection of Upper Intestinal Tract, Via Natural or Artificial Opening Endoscopic (ICD-10-PCS; principal; 2017-06-17 10:00)
PROC: 0DJD8ZZ Inspection of Lower Intestinal Tract, Via Natural or Artificial Opening Endoscopic (ICD-10-PCS; 2017-06-17 10:00)
DX: L03.311 Cellulitis of abdominal wall (principal); K85.90 Acute pancreatitis without necrosis or infection, unspecified; D61.818 Other pancytopenia; E44.0 Moderate protein-calorie malnutrition; I13.0 Hypertensive heart and chronic kidney disease with heart failure and stage 1 through stage 4 chronic kidney disease, or unspecified chronic kidney disease; C78.89 Secondary malignant neoplasm of other digestive organs; I50.32 Chronic diastolic (congestive) heart failure; K86.1 Other chronic pancreatitis; D68.69 Other thrombophilia; K92.2 Gastrointestinal hemorrhage, unspecified; B35.6 Tinea cruris; I27.2 Other secondary pulmonary hypertension; E83.39 Other disorders of phosphorus metabolism; I48.2 Chronic atrial fibrillation; J44.9 Chronic obstructive pulmonary disease, unspecified; B37.2 Candidiasis of skin and nail; G25.81 Restless legs syndrome; E87.6 Hypokalemia; G47.30 Sleep apnea, unspecified; G62.9 Polyneuropathy, unspecified; N18.9 Chronic kidney disease, unspecified; K21.9 Gastro-esophageal reflux disease without esophagitis; M19.90 Unspecified osteoarthritis, unspecified site; K44.9 Diaphragmatic hernia without obstruction or gangrene; Z79.01 Long term (current) use of anticoagulants; Z85.038 Personal history of other malignant neoplasm of large intestine; Z85.07 Personal history of malignant neoplasm of pancreas; Z87.440 Personal history of urinary (tract) infections; Z92.21 Personal history of antineoplastic chemotherapy; Z95.3 Presence of xenogenic heart valve; Z68.30 Body mass index [BMI] 30.0-30.9, adult; Z90.49 Acquired absence of other specified parts of digestive tract; Z90.710 Acquired absence of both cervix and uterus; Z90.722 Acquired absence of ovaries, bilateral; Z88.0 Allergy status to penicillin; Z88.1 Allergy status to other antibiotic agents
CPT/HCPCS: 36415; 71010; 80053; 80202; 81001; 82272; 83605; 83735; 84100; 84145; 85025; 85610; 87040; 87086; 93005; 96361; 96365; 96367; 96375; J0696; J1170; J2250; J2405; J3010; J3370; C9113; J3475; J7030; J7040; J7050; J7120

== ENCOUNTER 2017-06-29 01:37 | Inpatient (IN) | payer OTHER ==
[~2017-06-29] VITALS: Ht 152.4 cm; Wt 94.9 kg
[~2017-06-29 01:37] MED LIST changes: +NYST60PO TP
[2017-06-29] MEDS ORDERED: SODIUM CHLORIDE 0.9% 1,000ML IVBOLUS ONE (02:30)
[2017-06-29] MEDS ORDERED: ACETAMINOPHEN 325 MG TABLET PO ONE (02:30)
[2017-06-29] MEDS ORDERED: ONDANSETRON 2MG/ML, 2ML IVPush ONE (02:30)
[2017-06-29] MEDS ORDERED: SODIUM CHLORIDE FLUSH 10ML SYR IVF ONE (02:30)
[2017-06-29] MEDS ORDERED: CHEMO IVPB (03:11)
[2017-06-29] MEDS ORDERED: ONDA4TAB13 SL (03:11)
[2017-06-29 03:20] LABS: ASPARTATE AMINO TRANSFERASE 29 U/L (15-37); BLOOD UREA NITROGEN 42 mg/dL (7-18)
[2017-06-29 03:26] LABS: HEMATOCRIT 27.5 % (34.6-47.8); HEMOGLOBIN 9.2 g/dL (11.7-16.4); WHITE BLOOD COUNT 7.5 x10^3/uL (3.4-10)
[2017-06-29] MEDS ORDERED: ACETAMINOPHEN 325 MG TABLET ONE (03:53)
[2017-06-29] MEDS ORDERED: DOCUSATE 100 MG CAPSULE PO PRN (05:00)
[2017-06-29] MEDS ORDERED: ACETAMINOPHEN 325 MG TABLET PO PRN (05:00)
[2017-06-29] MEDS ORDERED: ONDANSETRON 2MG/ML, 2ML IVPush PRN (05:00)
[2017-06-29] MEDS ORDERED: VANCOMYCIN PER PHARMACY MC PRN (05:00)
[2017-06-29] MEDS ORDERED: hydrALAzine 20 MG/ML, 1ML IVPush PRN (05:00)
[2017-06-29] MEDS ORDERED: PHARMACY MAY ADJ FOR RENAL FX MC PRN (05:00)
[2017-06-29] MEDS ORDERED: POLYETHYLENE GLYCOL 17 GM PACKET PO PRN (05:00)
[2017-06-29] MEDS: SODIUM CHLORIDE 0.9% 1,000 ML IV SCH ×2 (05:48→17:13)
[2017-06-29] MEDS: morphine SULFATE 10 MG/ML, 1ML IVPush PRN ×3 (05:48→16:26)
[2017-06-29] MEDS: LEVOFLOXACIN/PMX 500MG/100ML 100 ML IV SCH ×2 (05:48→08:07)
[2017-06-29] MEDS ORDERED: PHARMACOKINETIC MONITORING MC PRN (06:00)
[2017-06-29] MEDS ORDERED: PHARMACOKINETIC CONSULTATION MC ONE (06:00)
[2017-06-29 06:48] VITALS: BP 101/58
[2017-06-29] MEDS ORDERED: VANCOMYCIN 1,300 MG in SODIUM CHLORIDE 0.9% 250 ML IV ONE (07:30)
[2017-06-29] MEDS: CHOLECALCIFEROL 1,000 UNIT TABLET PO SCH (08:09)
[2017-06-29] MEDS: CARBIDOPA/LEVODOPA 25 MG/100 MG TABLET PO SCH ×2 (08:09→20:11)
[2017-06-29] MEDS: PREGABALIN 25 MG CAPSULE PO SCH ×2 (08:10→20:12)
[2017-06-29] MEDS: SUCRALFATE 1 GM TABLET PO SCH ×2 (08:12→20:12)
[2017-06-29] MEDS: VERAPAMIL ER 180MG TABLET.ER PO SCH (08:12)
[2017-06-29] MEDS: NYSTATIN TOPICAL POWDER 15GM TP SCH ×2 (08:15→21:04)
[2017-06-29] MEDS: TEMPLATE NON-FORMULARY MED. (Budesonide/Formoterol Fumarate (Symbicort 80-4.5 Mcg Inhaler) INH SCH ×2 (08:15→20:13)
[2017-06-29] MEDS ORDERED: WARFARIN 5 MG TABLET PO-COUM SCH (09:00)
[2017-06-29 12:50] VITALS: BP 90/52
[2017-06-29 18:33] VITALS: BP 100/55
[2017-06-29] MEDS: MONTELUKAST 10 MG TABLET PO SCH (20:11)
[2017-06-30 00:42] VITALS: BP 113/60
[2017-06-30 04:29] LABS: HEMATOCRIT 24.3 % (34.6-47.8); HEMOGLOBIN 8.1 g/dL (11.7-16.4); WHITE BLOOD COUNT 5.2 x10^3/uL (3.4-10)
[2017-06-30 04:39] LABS: ASPARTATE AMINO TRANSFERASE 18 U/L (15-37); BLOOD UREA NITROGEN 36 mg/dL (7-18)
[2017-06-30] MEDS: SODIUM CHLORIDE 0.9% 1,000 ML IV SCH ×2 (05:45→13:39)
[2017-06-30 06:43] VITALS: BP 132/74
[2017-06-30] MEDS: TEMPLATE NON-FORMULARY MED. (Budesonide/Formoterol Fumarate (Symbicort 80-4.5 Mcg Inhaler) INH SCH (09:00)
[2017-06-30] MEDS: SUCRALFATE 1 GM TABLET PO SCH ×2 (09:00→20:05)
[2017-06-30] MEDS ORDERED: WARFARIN 5 MG TABLET PO-COUM SCH (09:00)
[2017-06-30] MEDS ORDERED: VANCOMYCIN 1,300 MG in SODIUM CHLORIDE 0.9% 250 ML IV ONE (09:00)
[2017-06-30] MEDS: CHOLECALCIFEROL 1,000 UNIT TABLET PO SCH (09:01)
[2017-06-30] MEDS: NYSTATIN TOPICAL POWDER 15GM TP SCH ×2 (09:01→20:05)
[2017-06-30] MEDS: CARBIDOPA/LEVODOPA 25 MG/100 MG TABLET PO SCH ×2 (09:01→20:04)
[2017-06-30] MEDS: VERAPAMIL ER 180MG TABLET.ER PO SCH (09:02)
[2017-06-30] MEDS: PREGABALIN 25 MG CAPSULE PO SCH ×2 (09:02→20:05)
[2017-06-30 12:25] VITALS: BP 93/57
[2017-06-30 18:39] VITALS: BP 119/65
[2017-06-30] MEDS: MONTELUKAST 10 MG TABLET PO SCH (20:04)
[2017-06-30] MEDS: [UNRECOGNIZED DRUG - OTHER] INH SCH (20:04)
[2017-06-30] MEDS: FORMOTEROL FUMARATE INH SCH (20:04)
[2017-06-30] MEDS: BUDESONIDE INH SCH (20:04)
[2017-06-30] MEDS: OXYcodone/APAP 5/325MG TABLET PO PRN (20:04)
[2017-06-30 22:00] VITALS: BP 107/58
[2017-07-01 01:06] VITALS: BP 100/61
[2017-07-01] MEDS: OXYcodone/APAP 5/325MG TABLET PO PRN ×2 (04:20→14:24)
[2017-07-01 04:37] LABS: HEMATOCRIT 23.8 % (34.6-47.8); HEMOGLOBIN 7.9 g/dL (11.7-16.4); WHITE BLOOD COUNT 3.5 x10^3/uL (3.4-10)
[2017-07-01 04:41] LABS: BLOOD UREA NITROGEN 34 mg/dL (7-18)
[2017-07-01 05:46] LABS: DIFF TOTAL CELLS COUNTED 100 CELL DIFF
[2017-07-01 05:49] LABS: ANISOCYTOSIS 1+; VERIFY COUNTS? YES
[2017-07-01 05:50] LABS: OVALOCYTES 1+
[2017-07-01] MEDS: LEVOFLOXACIN/PMX 500MG/100ML 100 ML IV SCH (06:06)
[2017-07-01 07:21] VITALS: BP 93/51
[2017-07-01] MEDS: VERAPAMIL ER 180MG TABLET.ER PO SCH (08:50)
[2017-07-01] MEDS: FORMOTEROL FUMARATE INH SCH ×2 (08:51→19:42)
[2017-07-01] MEDS: NYSTATIN TOPICAL POWDER 15GM TP SCH ×2 (08:51→19:42)
[2017-07-01] MEDS: CHOLECALCIFEROL 1,000 UNIT TABLET PO SCH (08:51)
[2017-07-01] MEDS: CARBIDOPA/LEVODOPA 25 MG/100 MG TABLET PO SCH ×2 (08:51→19:42)
[2017-07-01] MEDS: [UNRECOGNIZED DRUG - OTHER] INH SCH ×2 (08:51→19:42)
[2017-07-01] MEDS: PREGABALIN 25 MG CAPSULE PO SCH ×2 (08:51→19:43)
[2017-07-01] MEDS: BUDESONIDE INH SCH ×2 (08:51→19:42)
[2017-07-01] MEDS: SUCRALFATE 1 GM TABLET PO SCH ×2 (08:51→19:42)
[2017-07-01] MEDS: morphine SULFATE 10 MG/ML, 1ML IVPush PRN (09:02)
[2017-07-01 13:15] VITALS: BP 107/66
[2017-07-01] MEDS: SODIUM CHLORIDE 0.9% 1,000 ML IV SCH ×3 (14:24→23:00)
[2017-07-01 19:20] VITALS: BP 96/58
[2017-07-01] MEDS: MONTELUKAST 10 MG TABLET PO SCH (19:42)
[2017-07-02 02:36] VITALS: BP 116/65
[2017-07-02 05:03] LABS: BLOOD UREA NITROGEN 34 mg/dL (7-18)
[2017-07-02 08:45] VITALS: BP 112/65
[2017-07-02] MEDS ORDERED: VANCOMYCIN 1,300 MG in SODIUM CHLORIDE 0.9% 250 ML IV ONE (09:00)
[2017-07-02] MEDS: VERAPAMIL ER 180MG TABLET.ER PO SCH (10:03)
[2017-07-02] MEDS: SODIUM CHLORIDE 0.9% 1,000 ML IV SCH (10:08)
[2017-07-02] MEDS: PREGABALIN 25 MG CAPSULE PO SCH (10:09)
[2017-07-02] MEDS: SUCRALFATE 1 GM TABLET PO SCH (10:09)
[2017-07-02] MEDS: CARBIDOPA/LEVODOPA 25 MG/100 MG TABLET PO SCH (10:09)
[2017-07-02] MEDS: NYSTATIN TOPICAL POWDER 15GM TP SCH (10:10)
[2017-07-02] MEDS: BUDESONIDE INH SCH (10:10)
[2017-07-02] MEDS: [UNRECOGNIZED DRUG - OTHER] INH SCH (10:10)
[2017-07-02] MEDS: FORMOTEROL FUMARATE INH SCH (10:10)
[2017-07-02] MEDS: CHOLECALCIFEROL 1,000 UNIT TABLET PO SCH (10:10)
[2017-07-02] MEDS: OXYcodone/APAP 5/325MG TABLET PO PRN (10:20)
[2017-07-02] MEDS ORDERED: CEFD300C37 PO (14:13)
[2017-07-02] MEDS ORDERED: METR500T PO (14:13)
[2017-07-02 14:29] VITALS: BP 96/60
== END 2017-07-02 16:26 | disposition home or self-care (01) | DRG 292 ==
LOC: ED 01:59 → EDIP 03:37 → 3NW 04:55
PROVIDERS: ADMIT Hospitalist; ATTEND Family Medicine
DX: I13.0 Hypertensive heart and chronic kidney disease with heart failure and stage 1 through stage 4 chronic kidney disease, or unspecified chronic kidney disease (principal); N17.9 Acute kidney failure, unspecified; E86.0 Dehydration; D68.69 Other thrombophilia; J44.9 Chronic obstructive pulmonary disease, unspecified; C25.9 Malignant neoplasm of pancreas, unspecified; I48.91 Unspecified atrial fibrillation; D63.8 Anemia in other chronic diseases classified elsewhere; D63.0 Anemia in neoplastic disease; I50.9 Heart failure, unspecified; G47.30 Sleep apnea, unspecified; G25.81 Restless legs syndrome; K21.9 Gastro-esophageal reflux disease without esophagitis; N18.9 Chronic kidney disease, unspecified; Z79.01 Long term (current) use of anticoagulants; Z79.51 Long term (current) use of inhaled steroids; Z79.83 Long term (current) use of bisphosphonates; Z79.899 Other long term (current) drug therapy; Z95.2 Presence of prosthetic heart valve; Z92.21 Personal history of antineoplastic chemotherapy
CPT/HCPCS: 36415; 71010; 80048; 80053; 80202; 81003; 83605; 83735; 84100; 84145; 85025; 85610; 87040; 93005; 93306; 96360; J1956; J3370; J2270; J7030; J7050

== ENCOUNTER 2017-07-02 20:18 | Inpatient (IN) | payer OTHER ==
[~2017-07-02] VITALS: Ht 144.8 cm; Wt 81.5 kg
[~2017-07-02 20:18] MED LIST changes: +CEFD300C37 PO; +CHEMO IVPB; +METR500T PO; +ONDA4TAB13 SL
[2017-07-02] MEDS ORDERED: SODIUM CHLORIDE FLUSH 10ML SYR IVF ONE (21:00)
[2017-07-02 21:14] LABS: HEMATOCRIT 25.2 % (34.6-47.8); HEMOGLOBIN 8.4 g/dL (11.7-16.4); WHITE BLOOD COUNT 4.4 x10^3/uL (3.4-10)
[2017-07-02 21:25] LABS: ASPARTATE AMINO TRANSFERASE 20 U/L (15-37); BLOOD UREA NITROGEN 29 mg/dL (7-18)
[2017-07-02 21:29] LABS: DIFF TOTAL CELLS COUNTED 100 CELL DIFF
[2017-07-02 21:30] LABS: IS PT STATUS REG ER OR PRE ER? YES
[2017-07-02 21:31] LABS: VERIFY COUNTS? YES
[2017-07-02] MEDS ORDERED: FUROSEMIDE 40 MG/4 ML IV ONE (23:30)
[2017-07-02] MEDS ORDERED: FUROSEMIDE 40 MG/4 ML ONE (23:32)
[2017-07-03] VITALS: BP 129/63
[2017-07-03] MEDS ORDERED: ONDANSETRON ODT 4 MG PO PRN
[2017-07-03] MEDS ORDERED: TEMAZEPAM 15 MG CAPSULE PO PRN
[2017-07-03] MEDS ORDERED: DOCUSATE 100 MG CAPSULE PO PRN
[2017-07-03] MEDS ORDERED: GUAIFENESIN/DM 200-20MG, 10ML UDC PO PRN
[2017-07-03] MEDS ORDERED: LABETALOL 5MG/ML, 20ML IVPush PRN
[2017-07-03] MEDS ORDERED: ACETAMINOPHEN 325 MG TABLET PO PRN
[2017-07-03] MEDS ORDERED: ALBUTEROL SULFATE 2.5 MG/3 ML NPPB PRN (00:30)
[2017-07-03 02:37] VITALS: BP 130/74
[2017-07-03 04:54] LABS: HEMATOCRIT 23.9 % (34.6-47.8); HEMOGLOBIN 8.1 g/dL (11.7-16.4); WHITE BLOOD COUNT 4.5 x10^3/uL (3.4-10)
[2017-07-03 05:03] LABS: BLOOD UREA NITROGEN 26 mg/dL (7-18)
[2017-07-03] MEDS: POTASSIUM CHLORIDE 10 MEQ TABLET.ER PO SCH ×3 (06:01→20:40)
[2017-07-03 08:35] VITALS: BP 101/62
[2017-07-03] MEDS: VERAPAMIL ER 180MG TABLET.ER PO SCH (08:40)
[2017-07-03] MEDS: CARBIDOPA/LEVODOPA 25 MG/100 MG TABLET PO SCH ×2 (08:41→20:38)
[2017-07-03] MEDS: PREGABALIN 25 MG CAPSULE PO SCH ×2 (08:41→20:39)
[2017-07-03] MEDS: metroNIDAZOLE 500 MG TABLET PO SCH ×3 (08:42→20:39)
[2017-07-03] MEDS: SUCRALFATE 1 GM TABLET PO SCH ×2 (08:43→20:39)
[2017-07-03] MEDS: CEFDINIR 300 MG CAPSULE PO SCH (08:43)
[2017-07-03] MEDS: FUROSEMIDE 20 MG/2 ML IV SCH ×2 (08:44→16:15)
[2017-07-03] MEDS ORDERED: POTASSIUM CHLORIDE 10 MEQ TABLET.ER PO SCH (09:00)
[2017-07-03] MEDS ORDERED: MAGNESIUM SULFATE PMX 2GM/50ML 50 ML IV ONE (10:30)
[2017-07-03] MEDS: NYSTATIN TOPICAL POWDER 15GM TP SCH ×2 (10:55→20:37)
[2017-07-03 14:14] VITALS: BP 95/57
[2017-07-03] MEDS: HEPARIN 5,000 UNITS/ML, 1ML SQ SCH (18:07)
[2017-07-03 20:00] VITALS: BP 107/55
[2017-07-04 02:30] VITALS: BP 107/67
[2017-07-04] MEDS: HEPARIN 5,000 UNITS/ML, 1ML SQ SCH ×3 (03:13→18:17)
[2017-07-04 04:44] LABS: BLOOD UREA NITROGEN 21 mg/dL (7-18)
[2017-07-04 04:47] LABS: ASPARTATE AMINO TRANSFERASE 21 U/L (15-37)
[2017-07-04 05:37] LABS: HEMATOCRIT 23.3 % (34.6-47.8); HEMOGLOBIN 7.9 g/dL (11.7-16.4); WHITE BLOOD COUNT 4.2 x10^3/uL (3.4-10)
[2017-07-04 05:43] LABS: DIFF TOTAL CELLS COUNTED 100 CELL DIFF
[2017-07-04 05:44] LABS: VERIFY COUNTS? YES
[2017-07-04 07:25] VITALS: BP 103/62
[2017-07-04] MEDS: SUCRALFATE 1 GM TABLET PO SCH ×2 (09:20→20:30)
[2017-07-04] MEDS: metroNIDAZOLE 500 MG TABLET PO SCH ×3 (09:21→20:30)
[2017-07-04] MEDS: CARBIDOPA/LEVODOPA 25 MG/100 MG TABLET PO SCH ×2 (09:21→20:30)
[2017-07-04] MEDS: CEFDINIR 300 MG CAPSULE PO SCH (09:21)
[2017-07-04] MEDS: PREGABALIN 25 MG CAPSULE PO SCH ×2 (09:21→20:30)
[2017-07-04] MEDS: MAGNESIUM OXIDE 400 MG TABLET PO SCH (09:21)
[2017-07-04] MEDS: POTASSIUM CHLORIDE 10 MEQ TABLET.ER PO SCH (09:21)
[2017-07-04] MEDS: FUROSEMIDE 20 MG/2 ML IV SCH ×2 (09:21→16:48)
[2017-07-04] MEDS: NYSTATIN TOPICAL POWDER 15GM TP SCH ×2 (12:00→20:31)
[2017-07-04 12:29] VITALS: BP 103/64
[2017-07-04] MEDS: VERAPAMIL ER 180MG TABLET.ER PO SCH (12:30)
[2017-07-04] MEDS ORDERED: MAGNESIUM SULFATE PMX 4GM/100M 100 ML IV ONE (13:00)
[2017-07-04 13:03] VITALS: BP 106/65
[2017-07-04] MEDS: POTASSIUM ACID PHOSPHATE 500 MG TABLET.SOL PO SCH ×2 (13:47→20:31)
[2017-07-04] MEDS: POTASSIUM CHLORIDE 20 MEQ TAB.ER.PRT PO SCH ×2 (13:47→16:48)
[2017-07-04 20:00] VITALS: BP 117/68
[2017-07-05] MEDS: HEPARIN 5,000 UNITS/ML, 1ML SQ SCH ×3 (01:50→18:15)
[2017-07-05] MEDS: POTASSIUM ACID PHOSPHATE 500 MG TABLET.SOL PO SCH ×2 (01:50→09:01)
[2017-07-05 02:00] VITALS: BP 116/69
[2017-07-05] MEDS: FUROSEMIDE 20 MG/2 ML IV SCH ×2 (08:59→18:15)
[2017-07-05] MEDS: PREGABALIN 25 MG CAPSULE PO SCH ×2 (09:00→21:19)
[2017-07-05] MEDS: MAGNESIUM OXIDE 400 MG TABLET PO SCH (09:00)
[2017-07-05] MEDS: CEFDINIR 300 MG CAPSULE PO SCH (09:00)
[2017-07-05] MEDS: CARBIDOPA/LEVODOPA 25 MG/100 MG TABLET PO SCH ×2 (09:00→21:00)
[2017-07-05] MEDS: SUCRALFATE 1 GM TABLET PO SCH ×2 (09:00→21:00)
[2017-07-05] MEDS: metroNIDAZOLE 500 MG TABLET PO SCH ×3 (09:00→21:19)
[2017-07-05] MEDS: VERAPAMIL ER 180MG TABLET.ER PO SCH (09:01)
[2017-07-05] MEDS: POTASSIUM CHLORIDE 20 MEQ TAB.ER.PRT PO SCH ×3 (09:01→18:15)
[2017-07-05] MEDS: NYSTATIN TOPICAL POWDER 15GM TP SCH ×2 (09:03→21:20)
[2017-07-05 09:51] VITALS: BP 106/67
[2017-07-05 15:23] VITALS: BP 95/58
[2017-07-05 20:11] VITALS: BP 118/79
[2017-07-05] MEDS: OXYcodone IR 5MG TABLET PO PRN (21:19)
[2017-07-06 02:06] VITALS: BP 117/68
[2017-07-06] MEDS: HEPARIN 5,000 UNITS/ML, 1ML SQ SCH ×3 (03:17→16:25)
[2017-07-06 06:18] LABS: HEMOGLOBIN 7.9 g/dL (11.7-16.4); WHITE BLOOD COUNT 3.8 x10^3/uL (3.4-10)
[2017-07-06 06:27] LABS: BLOOD UREA NITROGEN 16 mg/dL (7-18)
[2017-07-06 07:38] VITALS: BP 120/70
[2017-07-06] MEDS: CARBIDOPA/LEVODOPA 25 MG/100 MG TABLET PO SCH ×2 (09:00→21:00)
[2017-07-06] MEDS: SUCRALFATE 1 GM TABLET PO SCH ×2 (09:00→21:00)
[2017-07-06] MEDS: POTASSIUM CHLORIDE 20 MEQ TAB.ER.PRT PO SCH ×6 (09:02→21:05)
[2017-07-06] MEDS: FUROSEMIDE 20 MG/2 ML IV SCH ×2 (09:02→16:25)
[2017-07-06] MEDS: CEFDINIR 300 MG CAPSULE PO SCH (09:03)
[2017-07-06] MEDS: metroNIDAZOLE 500 MG TABLET PO SCH ×3 (09:03→21:05)
[2017-07-06] MEDS: MAGNESIUM OXIDE 400 MG TABLET PO SCH (09:04)
[2017-07-06] MEDS: VERAPAMIL ER 180MG TABLET.ER PO SCH (09:04)
[2017-07-06] MEDS: PREGABALIN 25 MG CAPSULE PO SCH ×2 (09:04→21:05)
[2017-07-06] MEDS: NYSTATIN TOPICAL POWDER 15GM TP SCH ×2 (09:07→21:06)
[2017-07-06] MEDS: OXYcodone IR 5MG TABLET PO PRN ×2 (09:16→21:04)
[2017-07-06 14:38] VITALS: BP 123/74
[2017-07-06] MEDS: LACTOBACILLUS CHEW TABLET PO SCH ×2 (16:25→21:05)
[2017-07-06 20:37] VITALS: BP 105/62
[2017-07-07 02:10] VITALS: BP 96/59
[2017-07-07] MEDS: HEPARIN 5,000 UNITS/ML, 1ML SQ SCH ×3 (03:08→16:49)
[2017-07-07] MEDS: POTASSIUM CHLORIDE 20 MEQ TAB.ER.PRT PO SCH ×6 (03:08→20:05)
[2017-07-07 06:03] LABS: HEMATOCRIT 23.5 % (34.6-47.8); HEMOGLOBIN 7.9 g/dL (11.7-16.4); WHITE BLOOD COUNT 4.3 x10^3/uL (3.4-10)
[2017-07-07 06:26] LABS: DIFF TOTAL CELLS COUNTED 100 CELL DIFF
[2017-07-07 06:29] LABS: ANISOCYTOSIS 1+; GIANT PLATELETS 1+; LARGE PLATELETS 1+; POLYCHROMASIA 1+; VERIFY COUNTS? YES
[2017-07-07 06:37] LABS: ASPARTATE AMINO TRANSFERASE 48 U/L (15-37); BLOOD UREA NITROGEN 17 mg/dL (7-18)
[2017-07-07 08:17] VITALS: BP 102/55
[2017-07-07] MEDS: OXYcodone IR 5MG TABLET PO PRN ×2 (09:27→18:16)
[2017-07-07] MEDS: FUROSEMIDE 20 MG/2 ML IV SCH ×2 (09:27→16:49)
[2017-07-07] MEDS: metroNIDAZOLE 500 MG TABLET PO SCH ×3 (09:28→20:05)
[2017-07-07] MEDS: CARBIDOPA/LEVODOPA 25 MG/100 MG TABLET PO SCH ×2 (09:28→20:06)
[2017-07-07] MEDS: PREGABALIN 25 MG CAPSULE PO SCH ×2 (09:28→20:05)
[2017-07-07] MEDS: LACTOBACILLUS CHEW TABLET PO SCH ×3 (09:28→20:05)
[2017-07-07] MEDS: SUCRALFATE 1 GM TABLET PO SCH ×2 (09:28→20:05)
[2017-07-07] MEDS: CEFDINIR 300 MG CAPSULE PO SCH (09:28)
[2017-07-07] MEDS: NYSTATIN TOPICAL POWDER 15GM TP SCH ×2 (09:29→22:04)
[2017-07-07] MEDS ORDERED: MAGNESIUM SULFATE PMX 2GM/50ML 50 ML IV ONE (09:30)
[2017-07-07] MEDS ORDERED: POTASSIUM PHOSPHATE 44 MEQ in SODIUM CHLORIDE 0.9% 500 ML IV ONE (09:30)
[2017-07-07] MEDS: VERAPAMIL ER 180MG TABLET.ER PO SCH (10:31)
[2017-07-07] MEDS: MAGNESIUM OXIDE 400 MG TABLET PO SCH (12:11)
[2017-07-07 13:09] VITALS: BP 99/60
[2017-07-07 18:26] VITALS: BP 106/63
[2017-07-08 02:00] VITALS: BP 102/64
[2017-07-08] MEDS: HEPARIN 5,000 UNITS/ML, 1ML SQ SCH ×3 (03:01→17:58)
[2017-07-08 05:38] LABS: HEMATOCRIT 25.5 % (34.6-47.8); HEMOGLOBIN 8.7 g/dL (11.7-16.4); WHITE BLOOD COUNT 5.7 x10^3/uL (3.4-10)
[2017-07-08 05:45] LABS: BLOOD UREA NITROGEN 12 mg/dL (7-18)
[2017-07-08] MEDS: POTASSIUM CHLORIDE 20 MEQ TAB.ER.PRT PO SCH (06:08)
[2017-07-08] MEDS: OXYcodone IR 5MG TABLET PO PRN ×2 (06:14→18:11)
[2017-07-08 06:55] LABS: DIFF TOTAL CELLS COUNTED 100 CELL DIFF
[2017-07-08 06:58] LABS: ANISOCYTOSIS 1+; POLYCHROMASIA 1+; VERIFY COUNTS? YES
[2017-07-08 06:59] LABS: LARGE PLATELETS 1+
[2017-07-08 07:53] VITALS: BP 110/67
[2017-07-08] MEDS: VERAPAMIL ER 180MG TABLET.ER PO SCH (10:19)
[2017-07-08] MEDS: LACTOBACILLUS CHEW TABLET PO SCH ×3 (10:19→20:14)
[2017-07-08] MEDS: FUROSEMIDE 20 MG/2 ML IV SCH (10:19)
[2017-07-08] MEDS: PREGABALIN 25 MG CAPSULE PO SCH ×2 (10:19→20:15)
[2017-07-08] MEDS: metroNIDAZOLE 500 MG TABLET PO SCH ×3 (10:19→20:15)
[2017-07-08] MEDS: MAGNESIUM OXIDE 400 MG TABLET PO SCH (10:19)
[2017-07-08] MEDS: NYSTATIN TOPICAL POWDER 15GM TP SCH ×2 (10:20→20:15)
[2017-07-08] MEDS: SUCRALFATE 1 GM TABLET PO SCH ×2 (10:20→20:15)
[2017-07-08] MEDS: CARBIDOPA/LEVODOPA 25 MG/100 MG TABLET PO SCH ×2 (10:20→20:14)
[2017-07-08] MEDS: CEFDINIR 300 MG CAPSULE PO SCH (10:20)
[2017-07-08 15:02] VITALS: BP 111/56
[2017-07-08] MEDS ORDERED: VERAPAMIL ER 240MG TABLET.ER PO ONE (17:00)
[2017-07-08] MEDS: FUROSEMIDE 20 MG TABLET PO SCH (17:58)
[2017-07-08] MEDS: POTASSIUM CHLORIDE 10 MEQ TABLET.ER PO SCH (17:59)
[2017-07-08 18:43] VITALS: BP 113/72
[2017-07-08] MEDS ORDERED: ONDANSETRON ODT 4 MG PO PRN (21:30)
[2017-07-08] MEDS ORDERED: DOCUSATE 100 MG CAPSULE PO PRN (21:30)
[2017-07-08] MEDS ORDERED: TEMAZEPAM 15 MG CAPSULE PO PRN (21:30)
[2017-07-08] MEDS ORDERED: ACETAMINOPHEN 325 MG TABLET PO PRN (21:30)
[2017-07-08] MEDS ORDERED: LABETALOL 5MG/ML, 20ML IVPush PRN (21:30)
[2017-07-09 01:49] VITALS: BP 99/59
[2017-07-09] MEDS: HEPARIN 5,000 UNITS/ML, 1ML SQ SCH ×3 (04:34→18:15)
[2017-07-09 04:59] LABS: HEMATOCRIT 25.1 % (34.6-47.8); HEMOGLOBIN 8.5 g/dL (11.7-16.4); WHITE BLOOD COUNT 6.3 x10^3/uL (3.4-10)
[2017-07-09] MEDS: OXYcodone IR 5MG TABLET PO PRN ×3 (05:08→23:13)
[2017-07-09 05:10] LABS: BLOOD UREA NITROGEN 11 mg/dL (7-18)
[2017-07-09 06:03] LABS: DIFF TOTAL CELLS COUNTED 100 CELL DIFF
[2017-07-09 06:06] LABS: VERIFY COUNTS? YES
[2017-07-09 06:07] LABS: ANISOCYTOSIS 1+
[2017-07-09 06:08] LABS: OVALOCYTES 1+; POLYCHROMASIA 1+
[2017-07-09 06:09] LABS: LARGE PLATELETS 1+
[2017-07-09] MEDS ORDERED: VERAPAMIL ER 120MG TABLET.ER PO SCH ×2 (09:00)
[2017-07-09] MEDS: MAGNESIUM OXIDE 400 MG TABLET PO SCH (09:32)
[2017-07-09] MEDS: SUCRALFATE 1 GM TABLET PO SCH ×2 (09:32→21:00)
[2017-07-09] MEDS: metroNIDAZOLE 500 MG TABLET PO SCH ×3 (09:32→21:32)
[2017-07-09] MEDS: CEFDINIR 300 MG CAPSULE PO SCH (09:32)
[2017-07-09] MEDS: PREGABALIN 25 MG CAPSULE PO SCH ×2 (09:32→21:32)
[2017-07-09] MEDS: LACTOBACILLUS CHEW TABLET PO SCH ×3 (09:32→21:32)
[2017-07-09] MEDS: NYSTATIN TOPICAL POWDER 15GM TP SCH ×2 (09:33→21:33)
[2017-07-09] MEDS: FUROSEMIDE 20 MG TABLET PO SCH ×2 (09:33→16:27)
[2017-07-09] MEDS: POTASSIUM CHLORIDE 10 MEQ TABLET.ER PO SCH ×2 (09:33→16:27)
[2017-07-09] MEDS: CARBIDOPA/LEVODOPA 25 MG/100 MG TABLET PO SCH ×2 (09:33→21:00)
[2017-07-09 09:35] VITALS: BP 113/71
[2017-07-09 14:37] VITALS: BP 92/87
[2017-07-09 19:53] VITALS: BP 158/88
[2017-07-09 20:06] VITALS: BP 123/66
[2017-07-10 01:15] VITALS: BP 101/62
[2017-07-10] MEDS: HEPARIN 5,000 UNITS/ML, 1ML SQ SCH ×3 (02:00→18:26)
[2017-07-10 06:09] LABS: HEMATOCRIT 25.3 % (34.6-47.8); HEMOGLOBIN 8.5 g/dL (11.7-16.4); WHITE BLOOD COUNT 6.4 x10^3/uL (3.4-10)
[2017-07-10 06:27] LABS: ASPARTATE AMINO TRANSFERASE 90 U/L (15-37); BLOOD UREA NITROGEN 9 mg/dL (7-18)
[2017-07-10 06:47] LABS: DIFF TOTAL CELLS COUNTED 100 CELL DIFF
[2017-07-10 06:51] LABS: ANISOCYTOSIS 1+; POLYCHROMASIA 1+; VERIFY COUNTS? YES
[2017-07-10 06:52] LABS: LARGE PLATELETS 1+
[2017-07-10 07:15] VITALS: BP 109/66
[2017-07-10] MEDS: MAGNESIUM OXIDE 400 MG TABLET PO SCH (07:54)
[2017-07-10] MEDS: metroNIDAZOLE 500 MG TABLET PO SCH ×3 (07:54→21:28)
[2017-07-10] MEDS: CEFDINIR 300 MG CAPSULE PO SCH (07:54)
[2017-07-10] MEDS: LACTOBACILLUS CHEW TABLET PO SCH ×3 (07:54→21:28)
[2017-07-10] MEDS: PREGABALIN 25 MG CAPSULE PO SCH ×2 (07:54→21:28)
[2017-07-10] MEDS: POTASSIUM CHLORIDE 10 MEQ TABLET.ER PO SCH ×2 (07:55→17:11)
[2017-07-10] MEDS: OXYcodone IR 5MG TABLET PO PRN ×2 (07:55→17:46)
[2017-07-10] MEDS: FUROSEMIDE 20 MG TABLET PO SCH ×2 (07:55→17:11)
[2017-07-10] MEDS: VERAPAMIL ER 120MG TABLET.ER PO SCH (07:55)
[2017-07-10] MEDS: SUCRALFATE 1 GM TABLET PO SCH ×2 (07:55→21:29)
[2017-07-10] MEDS: NYSTATIN TOPICAL POWDER 15GM TP SCH ×2 (07:56→21:29)
[2017-07-10] MEDS: CARBIDOPA/LEVODOPA 25 MG/100 MG TABLET PO SCH ×2 (07:56→21:29)
[2017-07-10 15:51] VITALS: BP 102/63
[2017-07-10 20:00] VITALS: BP 106/65
[2017-07-11] VITALS (9 sets, daily range): BP systolic 98–131; BP diastolic 60–95
[2017-07-11] MEDS: HEPARIN 5,000 UNITS/ML, 1ML SQ SCH ×3 (02:10→16:35)
[2017-07-11 05:26] LABS: HEMATOCRIT 25.9 % (34.6-47.8); HEMOGLOBIN 8.8 g/dL (11.7-16.4); WHITE BLOOD COUNT 6.9 x10^3/uL (3.4-10)
[2017-07-11 05:31] LABS: BLOOD UREA NITROGEN 9 mg/dL (7-18)
[2017-07-11 05:56] LABS: DIFF TOTAL CELLS COUNTED 100 CELL DIFF
[2017-07-11 05:59] LABS: ANISOCYTOSIS 1+; OVALOCYTES 1+; POLYCHROMASIA 1+; VERIFY COUNTS? YES
[2017-07-11 06:00] LABS: LARGE PLATELETS 1+
[2017-07-11] MEDS: POTASSIUM CHLORIDE 10 MEQ TABLET.ER PO SCH ×2 (07:53→16:35)
[2017-07-11] MEDS: VERAPAMIL ER 120MG TABLET.ER PO SCH (07:53)
[2017-07-11] MEDS: LACTOBACILLUS CHEW TABLET PO SCH ×3 (07:54→20:28)
[2017-07-11] MEDS: metroNIDAZOLE 500 MG TABLET PO SCH ×3 (07:54→20:31)
[2017-07-11] MEDS: MAGNESIUM OXIDE 400 MG TABLET PO SCH (07:54)
[2017-07-11] MEDS: PREGABALIN 25 MG CAPSULE PO SCH ×2 (07:54→20:29)
[2017-07-11] MEDS: SUCRALFATE 1 GM TABLET PO SCH ×2 (07:54→20:31)
[2017-07-11] MEDS: CARBIDOPA/LEVODOPA 25 MG/100 MG TABLET PO SCH ×2 (07:56→20:31)
[2017-07-11] MEDS: CEFDINIR 300 MG CAPSULE PO SCH (07:56)
[2017-07-11] MEDS: NYSTATIN TOPICAL POWDER 15GM TP SCH ×2 (09:00→20:29)
[2017-07-11] MEDS ORDERED: FENTANYL PF 100 MCG/2ML ONE (09:33)
[2017-07-11] MEDS ORDERED: MIDAZOLAM 1 MG/ML, 2ML ONE (09:33)
[2017-07-11] MEDS ORDERED: SUCCINYLCHOLINE 20 MG/ML, 10ML ONE (10:24)
[2017-07-11] MEDS ORDERED: ONDANSETRON 2MG/ML, 2ML ONE (10:24)
[2017-07-11] MEDS ORDERED: NEOSTIGMINE 1 MG/ML, 10ML ONE (10:24)
[2017-07-11] MEDS ORDERED: DEXAMETHASONE 4 MG/ML, 1ML ONE (10:24)
[2017-07-11] MEDS ORDERED: PROPOFOL 10 MG/ML, 20ML ONE (10:24)
[2017-07-11] MEDS ORDERED: ROCURONIUM 10 MG/ML ONE (10:24)
[2017-07-11] MEDS ORDERED: GLYCOPYRROLATE 0.4 MG/2 ML, 2ML ONE (10:25)
[2017-07-11] MEDS: OXYcodone IR 5MG TABLET PO PRN ×3 (12:03→20:30)
[2017-07-12] MEDS: OXYcodone IR 5MG TABLET PO PRN ×3 (01:42→21:02)
[2017-07-12] MEDS: HEPARIN 5,000 UNITS/ML, 1ML SQ SCH ×3 (01:42→18:23)
[2017-07-12 02:00] VITALS: BP 119/74
[2017-07-12 05:51] LABS: HEMATOCRIT 28.9 % (34.6-47.8); HEMOGLOBIN 9.7 g/dL (11.7-16.4); WHITE BLOOD COUNT 6.7 x10^3/uL (3.4-10)
[2017-07-12 06:01] LABS: BLOOD UREA NITROGEN 10 mg/dL (7-18)
[2017-07-12 07:02] LABS: DIFF TOTAL CELLS COUNTED 100 CELL DIFF
[2017-07-12 07:12] LABS: ANISOCYTOSIS 1+; OVALOCYTES 1+; POIKILOCYTOSIS 1+; POLYCHROMASIA 1+; VERIFY COUNTS? YES
[2017-07-12 07:59] VITALS: BP 131/70
[2017-07-12] MEDS: NYSTATIN TOPICAL POWDER 15GM TP SCH ×2 (08:39→21:01)
[2017-07-12] MEDS: MAGNESIUM OXIDE 400 MG TABLET PO SCH (08:39)
[2017-07-12] MEDS: VERAPAMIL ER 120MG TABLET.ER PO SCH (08:40)
[2017-07-12] MEDS: metroNIDAZOLE 500 MG TABLET PO SCH ×2 (08:40→16:00)
[2017-07-12] MEDS: LACTOBACILLUS CHEW TABLET PO SCH ×3 (08:40→21:01)
[2017-07-12] MEDS: PREGABALIN 25 MG CAPSULE PO SCH ×2 (08:40→21:02)
[2017-07-12] MEDS: POTASSIUM CHLORIDE 10 MEQ TABLET.ER PO SCH (08:40)
[2017-07-12] MEDS: SUCRALFATE 1 GM TABLET PO SCH ×2 (08:41→21:02)
[2017-07-12] MEDS: CARBIDOPA/LEVODOPA 25 MG/100 MG TABLET PO SCH ×2 (08:41→21:03)
[2017-07-12] MEDS: CEFDINIR 300 MG CAPSULE PO SCH (08:49)
[2017-07-12 14:18] VITALS: BP 89/52
[2017-07-12] MEDS ORDERED: SODIUM CHLORIDE 0.9%, 500ML IVBOLUS ONE (15:00)
[2017-07-12 15:56] VITALS: BP 99/57
[2017-07-12 20:00] VITALS: BP 96/57
[2017-07-13 02:00] VITALS: BP 133/69
[2017-07-13] MEDS: OXYcodone IR 5MG TABLET PO PRN ×2 (02:10→20:46)
[2017-07-13] MEDS: HEPARIN 5,000 UNITS/ML, 1ML SQ SCH ×3 (02:10→18:34)
[2017-07-13 06:20] LABS: HEMATOCRIT 26.8 % (34.6-47.8); HEMOGLOBIN 8.9 g/dL (11.7-16.4); WHITE BLOOD COUNT 7.2 x10^3/uL (3.4-10)
[2017-07-13 06:27] LABS: BLOOD UREA NITROGEN 12 mg/dL (7-18)
[2017-07-13 06:57] LABS: DIFF TOTAL CELLS COUNTED 100 CELL DIFF
[2017-07-13 07:10] LABS: ANISOCYTOSIS 1+; OVALOCYTES 1+; POIKILOCYTOSIS 1+; POLYCHROMASIA 1+; VERIFY COUNTS? YES
[2017-07-13 07:11] VITALS: BP 154/83
[2017-07-13] MEDS: SUCRALFATE 1 GM TABLET PO SCH ×2 (09:00→20:45)
[2017-07-13] MEDS: CARBIDOPA/LEVODOPA 25 MG/100 MG TABLET PO SCH ×2 (09:00→20:46)
[2017-07-13] MEDS: NYSTATIN TOPICAL POWDER 15GM TP SCH ×2 (10:09→20:46)
[2017-07-13] MEDS: LACTOBACILLUS CHEW TABLET PO SCH ×3 (10:10→20:45)
[2017-07-13] MEDS: PREGABALIN 25 MG CAPSULE PO SCH ×2 (10:10→20:45)
[2017-07-13] MEDS: MAGNESIUM OXIDE 400 MG TABLET PO SCH (10:10)
[2017-07-13 14:45] VITALS: BP 146/76
[2017-07-13 20:43] VITALS: BP 109/66
[2017-07-14] MEDS: HEPARIN 5,000 UNITS/ML, 1ML SQ SCH ×3 (01:56→18:00)
[2017-07-14 01:57] VITALS: BP 133/51
[2017-07-14 05:30] LABS: BLOOD UREA NITROGEN 12 mg/dL (7-18); HEMOGLOBIN 9.9 g/dL (11.7-16.4); WHITE BLOOD COUNT 8.8 x10^3/uL (3.4-10)
[2017-07-14 06:01] LABS: DIFF TOTAL CELLS COUNTED 100 CELL DIFF
[2017-07-14 06:04] LABS: VERIFY COUNTS? YES
[2017-07-14 06:05] LABS: ANISOCYTOSIS 1+; OVALOCYTES 1+
[2017-07-14 06:08] LABS: POLYCHROMASIA 1+
[2017-07-14 07:13] VITALS: BP 131/77
[2017-07-14] MEDS: LACTOBACILLUS CHEW TABLET PO SCH ×2 (09:00→16:30)
[2017-07-14] MEDS ORDERED: POTASSIUM CHLORIDE 20 MEQ TAB.ER.PRT PO ONE (09:00)
[2017-07-14] MEDS: SUCRALFATE 1 GM TABLET PO SCH (09:00)
[2017-07-14] MEDS: PREGABALIN 25 MG CAPSULE PO SCH (09:01)
[2017-07-14] MEDS: MAGNESIUM OXIDE 400 MG TABLET PO SCH (09:01)
[2017-07-14] MEDS: NYSTATIN TOPICAL POWDER 15GM TP SCH (09:01)
[2017-07-14] MEDS: CARBIDOPA/LEVODOPA 25 MG/100 MG TABLET PO SCH (09:01)
[2017-07-14 13:55] VITALS: BP 134/80
[2017-07-14] MEDS ORDERED: MAGNESIUM SULFATE PMX 2GM/50ML 50 ML IV ONE (16:00)
[2017-07-14] MEDS ORDERED: MAGN400T26 PO (16:33)
[2017-07-14] MEDS ORDERED: ASPI-621 PO (16:33)
[2017-07-14] MEDS ORDERED: MAGNESIUM OXIDE 400 MG TABLET PO SCH (21:00)
== END 2017-07-14 18:45 | DRG 291 ==
LOC: ED 22:06 → EDIP 23:05 → 5SO 23:58 → 4EST 07-03 14:18
PROVIDERS: ADMIT Internal Medicine; ATTEND Internal Medicine
PROC: 0FPB8DZ Removal of Intraluminal Device from Hepatobiliary Duct, Via Natural or Artificial Opening Endoscopic (ICD-10-PCS; 2017-07-11)
PROC: BF111ZZ Fluoroscopy of Biliary and Pancreatic Ducts using Low Osmolar Contrast (ICD-10-PCS; 2017-07-11)
PROC: 0F798DZ Dilation of Common Bile Duct with Intraluminal Device, Via Natural or Artificial Opening Endoscopic (ICD-10-PCS; principal; 2017-07-11 09:00)
DX: I13.0 Hypertensive heart and chronic kidney disease with heart failure and stage 1 through stage 4 chronic kidney disease, or unspecified chronic kidney disease (principal); J96.01 Acute respiratory failure with hypoxia; E43 Unspecified severe protein-calorie malnutrition; N17.9 Acute kidney failure, unspecified; D68.69 Other thrombophilia; R53.2 Functional quadriplegia; D69.6 Thrombocytopenia, unspecified; E83.39 Other disorders of phosphorus metabolism; G62.9 Polyneuropathy, unspecified; I27.20 Pulmonary hypertension, unspecified; I50.33 Acute on chronic diastolic (congestive) heart failure; C25.9 Malignant neoplasm of pancreas, unspecified; S42.202A Unspecified fracture of upper end of left humerus, initial encounter for closed fracture; E83.42 Hypomagnesemia; E87.6 Hypokalemia; G25.81 Restless legs syndrome; I48.2 Chronic atrial fibrillation; R00.1 Bradycardia, unspecified; I95.9 Hypotension, unspecified; D63.8 Anemia in other chronic diseases classified elsewhere; J44.9 Chronic obstructive pulmonary disease, unspecified; K21.9 Gastro-esophageal reflux disease without esophagitis; M19.90 Unspecified osteoarthritis, unspecified site; N18.3 Chronic kidney disease, stage 3 (moderate); Z96.649 Presence of unspecified artificial hip joint; X58.XXXA Exposure to other specified factors, initial encounter; Y99.8 Other external cause status; Y92.89 Other specified places as the place of occurrence of the external cause; Y93.89 Activity, other specified; Z79.01 Long term (current) use of anticoagulants; Z85.038 Personal history of other malignant neoplasm of large intestine; Z91.81 History of falling; Z95.2 Presence of prosthetic heart valve; Z68.38 Body mass index [BMI] 38.0-38.9, adult; Z88.0 Allergy status to penicillin
CPT/HCPCS: 36415; 71010; 74328; 80048; 80053; 83735; 83880; 84100; 84484; 85025; 93005; 93970; 96374; J1100; J1644; J1940; J2250; J2405; J2704; J2710; J3010; C1769; C1874; J0330; J3475; J7040